=== PATIENT | female | born 1935 | race Caucasian/White ===

== ENCOUNTER 2019-07-19 13:21 | Inpatient (IN) | payer OTHER ==
[~2019-07-19] VITALS: Ht 157.5 cm; Wt 76.2 kg
[2019-07-19 13:39] VITALS: BP 172/74
[2019-07-19 13:50] LABS: URINE BILIRUBIN NEGATIVE (Negative); URINE BLOOD 1+ (Negative); URINE CLARITY CLEAR; URINE COLOR YELLOW; URINE GLUCOSE-RANDOM 3+ (Negative); URINE KETONES NEGATIVE (Negative); URINE LEUKOCYTES-REFLEX 1+ (Negative); URINE NITRITE-REFLEX NEGATIVE (Negative); URINE PROTEIN 2+ (Negative); URINE SPECIFIC GRAVITY 1.015 (1.005-1.030); URINE UROBILINOGEN 0.2 E.U./dl (0.2-1.0)
[2019-07-19 14:04] LABS: ABSOLUTE LYMPHOCYTES 1.1 thou/uL (0.8-5.3); BASOPHILS 0.6 %
[2019-07-19 14:10] LABS: ABSOLUTE BASOPHILS 0.1 thou/uL (0.0-0.2); ABSOLUTE EOSINOPHILS 0.2 thou/uL (0.0-0.7); ABSOLUTE MONOCYTES 0.6 thou/uL (0.0-1.2); ABSOLUTE NEUTROPHILS 6.6 thou/uL (1.6-8.1); HEMOGLOBIN 11.9 gm/dL (12.0-15.0); LYMPHOCYTES 13.1 %; MCH 27.5 pg (26.0-34.0); MCHC 33.9 g/dL (28.0-37.0); MCV 81.3 fL (80.0-100.0); MONOCYTES 6.6 %; MPV 7.9 fl. (7.2-11.1); NUCLEATED RBCS 1 /100WBC; PLATELET COUNT* 411 thou/uL (150-400); POLYS 77.7 %; RBC 4.31 mil/uL (4.20-5.00); RDW-CV 13.1 % (10.5-14.5); WBC 8.5 thou/uL (4.0-11.0)
[2019-07-19 14:13] LABS: CALCIUM 9.1 mg/dL (8.5-10.1); POTASSIUM 3.4 mmol/L (3.5-5.1)
[2019-07-19 14:17] LABS: ALBUMIN 3.1 g/dL (3.4-5.0); MAGNESIUM 1.6 mg/dL (1.8-2.4); TOTAL BILIRUBIN 0.3 mg/dL (<0.1-1.0); TOTAL PROTEIN 7.6 g/dL (6.4-8.2)
[2019-07-19 14:21] LABS: CASTS None Seen /LPF (None Seen); CRYSTALS None Seen /LPF (None Seen); SQUAMOUS 0-3 Few /LPF (0-3); URINE RBC 0-2 Rare /HPF (0-2); URINE WBC-REFLEX 6-15 Few /HPF (0-5)
[2019-07-19 14:34] LABS: INFLUENZA A ANTIGEN Negative (Negative); INFLUENZA B ANTIGEN Negative (Negative)
[2019-07-19] MEDS ORDERED: BUPROPION XL300 MG PO (15:17)
[2019-07-19] MEDS ORDERED: CIPRO500 M1 PO (15:18)
[2019-07-19] MEDS ORDERED: AMARYL2 M1 PO (15:19)
[2019-07-19] MEDS ORDERED: DICLOFENAC SODI75 MG PO (15:19)
[2019-07-19] MEDS ORDERED: LEVEMIR100 UNIT/1 SUBQ (15:20)
[2019-07-19] MEDS ORDERED: LISINOPRIL-HCT1 EAC2 PO (15:20)
[2019-07-19] MEDS ORDERED: EXELON1 EACH TRANSDERM (15:21)
[2019-07-19] MEDS ORDERED: TRAZODONE 150150 M1 PO (15:23)
[2019-07-19] MEDS ORDERED: SIMVASTATIN80 MG PO (15:23)
[2019-07-19] MEDS ORDERED: VENLAFAXINE HC150 M1 PO (15:24)
[2019-07-19 16:17] VITALS: BP 174/78
--- NOTE | 2019-07-19 16:58 | EKG ---
[place] [address] ELECTROCARDIOGRAM REPORT Name: VELMA JENNINGS Room: [address] ADM IN [facility].#: [id number] Admission: 07/19/19 Attend Phys: Hans Cha Discharge: Date of : 39 Report #: [id number] THIS REPORT FOR: //name// [facility] ED Test Date: 2019-07-19 Test Time: 13:52:28 Pat Name: VELMA JENNINGS Department: Room: [facility] Gender: F [employer] Work[employer]: : 1935 Requested By: Jade Wilcox Order Number: [id number] MD: Brian Jiménez Measurements Intervals [place] Rate: 80 P: -5 UT: 227 QRS: -29 QRSD: 91 T: 73 QT: 403 QTc: 465 Interpretive Statements Sinus rhythm Prolonged UT interval Abnormal R-wave progression, early transition Left ventricular hypertrophy No previous ECG available for comparison Electronically Signed On 07-19-2019 16:58:19 CELLULAR PHONE REPAIRER by Brian Jiménez [email or web address] <ELECTRONICALLY SIGNED> By: Brian Jiménez MD, [facility] 07/19/19 [id number] [id number] Brian Jiménez MD, FACC /EPI
[2019-07-19 19:18] VITALS: BP 199/79
[2019-07-19 20:00] VITALS: BP 152/67
--- NOTE | 2019-07-19 20:16 | NUR ---
PATIENT ADMITTED FROM ER AT BEDSIDE. APPEARS ALERT AND ORIENNTED BUT FIGITY DENIES SOA OR CP .
[2019-07-20] VITALS: BP 166/71
[2019-07-20 04:00] VITALS: BP 101/41
--- NOTE | 2019-07-20 05:10 | NUR ---
PT IS ALERT WITH CONFUSION AT TIMES. FAMILY AT BEDSIDE FOR FIRST HALF OF SHIFT. PT IS ASSIST TIMES 1 BUT WANTS TO BE INDEPENDENT SO NEEDS ENCOURGEMENT TO ALLOW STAFF TO HELP HER. CURRENTLY ASLEEP WITH BED ALARM ON AND CALL LIGHT WITHIN REACH.
[2019-07-20 08:00] VITALS: BP 180/70
[2019-07-20 12:43] VITALS: BP 166/65
--- NOTE | 2019-07-20 13:02 | NUR ---
Pt is A&O. Resides at home with her . Independent, Pt and share IADLs. Pt has a cane that she can use for mobility. No hx of HH or SNF. Supportive dtr that lives across the street. Goal is home at pa. Following.
[2019-07-20 17:07] VITALS: BP 135/49
[2019-07-20 20:00] VITALS: BP 154/67
[2019-07-21 00:37] VITALS: BP 147/69
--- NOTE | 2019-07-21 04:03 | NUR ---
PT MAINTAIN O2 SATS ON RA. STATES SHE LIKES TO BE INDEPENDENT BUT WILL ALLOW FOR HELP WHEN NEED. PT IS A FALL RISK AND CAN BE CONFUSED AT TIMES. CURRENTLY ASLEEP IN BED WITH BED ALARM ON, CALL LIGHT WITHIN REACH.
[2019-07-21 04:56] VITALS: BP 126/54
[2019-07-21 05:24] LABS: MCH 27.2 pg (26.0-34.0); MCHC 32.7 g/dL (28.0-37.0); MCV 83.1 fL (80.0-100.0); MPV 6.9 fl. (7.2-11.1); RBC 3.37 mil/uL (4.20-5.00)
[2019-07-21 05:30] LABS: HEMOGLOBIN 9.2 gm/dL (12.0-15.0)
[2019-07-21 05:32] LABS: CALCIUM 8.5 mg/dL (8.5-10.1); CREATININE 0.9 mg/dL (0.6-1.3)
[2019-07-21 05:36] LABS: POTASSIUM 2.8 mmol/L (3.5-5.1)
[2019-07-21 08:00] VITALS: BP 134/65
[2019-07-21 12:26] VITALS: BP 159/66
[2019-07-21 15:23] VITALS: BP 159/67
--- NOTE | 2019-07-21 18:30 | NUR ---
RECEIVED REPORT FROM DANA GEORGE. ASSUMED CARE OF PT AROUND 0730. PT DROWSY, A&O TO PERSON, AND JULY. ORIENTATION AIDES PROVIDED. RN PROCEDURE IN PLACE TRACING SR WITH 1ST DEGREE WITH NO CHANGES THIS SHIFT. AM ASSESSMENT AND VITALS COMPLETED CHARTED. IV INTACT. MEDS PER EMAR. BS LOW THIS EVENING, RECHECK SHOWS UP TO 155. PT ATE A GOOD DINNER WITH HELP OF , BUT HAD PREVIOUSLY HAD POOR APPETITE. BLADDER SCANS SHOWED URINARY RETENTION - UROLOGY CALLED, ORDERS RECEIVED TO PLACE GAMEZ CATHETER. PT HESITANT AND RESISTANT TO CATHTER AT FIRST, BUT AFTER REASSURANCE ALLOWED CATHTETER TO BE PLACED. GAMEZ DRAINING LIGHT YELLOW URINE, GOOD OUTPUT. AT BEDSIDE MOST OF SHIFT. PT HAS DENIED PAIN THROUGHOUT SHIFT. POTASSIUM REPLACED. PT CURRENTLY RESTING IN BED WATCHING TV. CALL LIGHT IS WITHIN REACH. HOURLY ROUNDING PERFORMED. FALL PRECAUTIONS IN PLACE.
[2019-07-21 20:00] VITALS: BP 133/64
[2019-07-22] VITALS: BP 150/61
[2019-07-22 04:00] VITALS: BP 119/45
--- NOTE | 2019-07-22 05:12 | NUR ---
PT STATED SHE IS FEELING BETTER BUT DID HAVE SOME DISCOMFORT WITH GAMEZ IN PLACE. PROVIDED EDUCATION TO PT FOR REASSURRANCE. PT HAD NO OTHER C/O OF PAIN NOTED. CURRENTLY ASLEEP IN BED WITH CALL LIGHT WITHIN REACH AND BED ALARM ON.
[2019-07-22 09:25] LABS: CALCIUM 9.1 mg/dL (8.5-10.1); CREATININE 0.9 mg/dL (0.6-1.3); POTASSIUM 4.4 mmol/L (3.5-5.1)
[2019-07-22] MEDS ORDERED: METFORMIN HCL500 M3 PO ×2 (09:41→10:22)
--- NOTE | 2019-07-22 10:46 | NUR ---
PT'S GAMEZ CATHETER WILL REMAIN UNTIL SHE FOLLOWS UP WITH UROLOGY OUTPT.
[2019-07-22 11:55] VITALS: BP 152/69
[2019-07-22] MEDS ORDERED: VEETIDS 250MG250 M1 PO (14:35)
[2019-07-22] MEDS ORDERED: PENICILLIN VK500 MG PO (14:44)
--- NOTE | 2019-07-22 15:07 | NUR ---
EMPTIED 1 LITER CLEAR YELLOW URINE FROM GAMEZ AND CHANGED COLLECTION BAG TO A LEG BAG. INSTRUCTED PT AND SPOUSE HOW TO EMPTY LEG BAG AND PERFORM CATHETER CARE.
[2019-07-22 15:26] VITALS: BP 152/69
--- NOTE | 2019-07-22 16:23 | NUR ---
JEREMIAS SHELDON AND TELE. CALLED DR BRYANT UROLOGIST TO SET UP APPOINTMENT AT 1030 AM ON 07/28/19. WENT OVER DISCHARGE ORDERS AND MEDICATIONS WIT PT AND SPOUSE SEVERAL TIMES UNTIL IN WAS SATISFIED THEY UNDERSTOOD DISCHARGE ORDERS. REINFOCE GAMEZ AND LEG BAG CARE. DISCHRAGE PT TO HOME VIA PRIVATE VEHICLE TODAY.
== END 2019-07-22 16:20 | disposition home or self-care (01) | DRG 640 ==
LOC: M.ERS 13:21 → M.TBA-ER 14:27 → M.2W 14:27
PROVIDERS: Family Medicine; Nurse Practitioner Family; ADMIT Internal Medicine
DX: E87.1 Hypo-osmolality and hyponatremia (principal); G93.41 Metabolic encephalopathy; N30.01 Acute cystitis with hematuria; E46 Unspecified protein-calorie malnutrition; E11.65 Type 2 diabetes mellitus with hyperglycemia; E78.5 Hyperlipidemia, unspecified; E87.8 Other disorders of electrolyte and fluid balance, not elsewhere classified; E87.6 Hypokalemia; G30.9 Alzheimer's disease, unspecified; F02.80 Dementia in other diseases classified elsewhere, unspecified severity, without behavioral disturbance, psychotic disturbance, mood disturbance, and anxiety; N39.46 Mixed incontinence; R33.9 Retention of urine, unspecified; B95.1 Streptococcus, group B, as the cause of diseases classified elsewhere; E86.9 Volume depletion, unspecified; Z79.4 Long term (current) use of insulin; Z82.49 Family history of ischemic heart disease and other diseases of the circulatory system; Z83.3 Family history of diabetes mellitus